=== PATIENT | female | born 1995 | race Caucasian/White ===

== ENCOUNTER 2022-10-22 11:40 | Emergency (ER) | payer SELFPAY ==
--- NOTE | ~2022-10-22 | US_ITS ---
Limited Abdominal Sonogram: Real-time sonographic imaging of the right upper quadrant was performed. Clinical History: Pain Findings: The liver appears normal with no evidence of mass lesion or bile duct dilatation. Main por moy vein demonstrates normal direction of flow. The gallbladder is contracted. Focal echogenicity cou ld reflect gallstone versus fat or air within the bowel. The common bile duct measures 5 mm. The vis ualized pancreas, aorta, and IVC are unremarkable. Impression: Contracted gallbladder limits evaluation. Questionable gallstone present. Reviewed, dictated and finalized at location M. Impression: Contracted gallbladder limits evaluation. Questionable gallstone present.
[2022-10-22 11:51] VITALS: BP 119/81; PULSE 99; RESP 16; TEMP 36.2; O2SAT 98
--- NOTE | 2022-10-22 12:20 | ED.GENADULT ---
HPI - General Adult General Chief complaint: Abdominal Pain Stated complaint: stomach pain; gallbladder Time Seen by Provider: 10/22/22 12:14 Source: patient Mode of arrival: ambulatory Limitations: no limitations History of Present Illness HPI narrative: Patient presents to the emergency room on her own secondary to worsening right upper quadrant pains. She has known gallbladder disease and recently moved and is requiring a new surgeon at this time. They are monitoring the gallbladder and not doing surgery right away. She is unable to hold food down at this time due to the pain and nausea. Onset (ago): day(s) (2) Location: back and abdomen Radiation: back and abdomen Severity: moderate Severity scale (1-10): 8 Quality: sharp Pain Consistency: intermittent and colicky Relieving factors: none Exacerbating factors: other (food) Associated symptoms: nausea/vomiting Treatments prior to arrival: none Related Data Home Medications Medication Instructions Recorded Confirmed escitalopram oxalate 5 mg tablet 5 mg PO DAILY 10/22/22 10/22/22 (Lexapro) Allergies Allergy/AdvReac Type Severity Reaction Status Date / Time No Known Allergies Allergy Verified 10/22/22 11:52 Review of Systems Review of Systems: All systems reviewed & are unremarkable except as noted in HPI and below Constitutional: Constitutional: Reports no additional constitutional complaints Cardiovascular: Cardiovascular: Reports no additional cardiovascular complaints Respiratory: Respiratory: Reports no additional respiratory complaints Gastrointestinal: Gastrointestinal: Reports as per HPI, Reports no additional gastrointestinal complaints, Reports abdominal pain, Reports diarrhea, Reports nausea and Reports vomiting Genitourinary: Genitourinary: Reports no additional female genitourinary complaints, Denies dysuria and Denies flank pain Musculoskeletal: Musculoskeletal: Reports no additional musculoskeletal complaints and Reports as per HPI Integumentary/Breasts: Skin/Breast: Reports system reviewed and no additional complaints, except as docu Neurologic: Reports system reviewed and no additional complaints, except as documented Exam Const: General: healthy appearing and no acute distress Chest: Chest palpation & inspection: normal inspection of the chest Resp: Effort & Inspection: normal respiratory effort Auscultation: clear to auscultation bilaterally Cardio: Rate: regular rate Rhythm: regular rhythm Heart sounds: no murmurs GI: Inspection: non-distended GI Palp: Yes Soft to palpation, Yes Tenderness to palpation present (GI), No Guarding due to palpation present (GI), No Rigid due to palpation, No Hernia present, No Palpable mass present and Yes Rebound tenderness present (Haile sign positive.) Auscultation: normal bowel sounds Back/Spine/Pelvis: Back: no CVA tenderness Skin: General skin exam: normal color Neuro: General: patient oriented x3 Extrem: General: normal to inspection and no clubbing, cyanosis or edema Psych: Mental Status: mental status grossly normal Course Vital Signs Vital signs: Vital Signs Temperature 36.2 C L 10/22/22 11:51 Pulse Rate 99 10/22/22 11:51 Respiratory Rate 16 10/22/22 11:51 Blood Pressure 119/81 10/22/22 11:51 Pulse Oximetry 98 10/22/22 11:51 Oxygen Delivery Room Air 10/22/22 11:51 Temperature 36.2 C L 10/22/22 11:51 Pulse Rate 99 10/22/22 11:51 Respiratory Rate 16 10/22/22 11:51 Blood Pressure 119/81 10/22/22 11:51 Pulse Oximetry 98 10/22/22 11:51 Oxygen Delivery Room Air 10/22/22 11:51 Medical Decision Making Vital Signs Vital Signs: Vital Signs Temperature 36.2 C L 10/22/22 11:51 Pulse Rate 99 10/22/22 11:51 Respiratory Rate 16 10/22/22 11:51 Blood Pressure 119/81 10/22/22 11:51 Pulse Oximetry 98 10/22/22 11:51 Oxygen Delivery Room Air 10/22/22 11:51 Temperature 36.2 C L 10/22/22 11:51 Pulse Ra
[2022-10-22 12:33] LABS: Pregnancy On Board Control Positive; Urine Pregnancy Test Negative
[2022-10-22 12:34] LABS: Appearance Urine Clear (Clear); Bilirubin Urine Negative (Negative); Blood Urine Negative (Negative); Color Urine Light Yellow (Yellow); Glucose Urine UA Negative (Negative); Ketones Urine Negative (Negative); Leukocyte Esterase Ur Negative (Negative); Nitrate Urine Negative (Negative); Protein Urine Negative (Negative); Urobilinogen Urine 0.2 mg/dL (0.2-1.0); pH Urine 6.5 (5.0-8.0)
[2022-10-22 12:35] LABS: Add Urine Microscopic? NO
[2022-10-22 12:59] LABS: Basophils Absolute Auto 0.04 K/mm3 (0.00-0.10); Basophils Percent Auto 0.7 % (0.0-1.0); Eosinophils Absolute Auto 0.05 K/mm3 (0.02-0.50); Eosinophils Percent Auto 0.9 % (1.0-6.0); Hemoglobin 13.1 g/dL (12.0-15.0); Immature Granulocyte Absolute 0.01 K/mm3 (0.00-0.00); Immature Granulocyte Percent A 0.2 % (0.0-0.0); Lymphocytes Absolute Auto 2.04 K/mm3 (1.10-4.50); Lymphocytes Percent Auto 36.7 % (18.0-42.0); Mean Corpuscular HGB Conc 33.6 g/dL (32.0-36.0); Mean Corpuscular Hemoglobin 30.5 pg (27.0-31.0); Mean Corpuscular Volume 90.7 fL (78.0-102.0); Mean Platelet Volume 10.2 fl (9.2-11.8); Monocytes Absolute Auto 0.44 K/mm3 (0.10-0.90); Monocytes Percent Auto 7.9 % (2.0-11.0); Neutrophils Percent Auto 53.6 % (50.0-70.0); Platelet Count Result 231 K/mm3 (150-420); Red Cell Distribution Width 12.3 % (11.6-14.4); White Blood Count 5.6 K/mm3 (4.8-10.8)
[2022-10-22 13:12] LABS: Alanine Aminotransferase 62 U/L (14-59); Albumin Level 4.1 g/dL (3.4-5.0); Alkaline Phosphatase 81 U/L (46-116); Anion Gap 10 mmol/L (8-16); Aspartate Amino Transferase 30 U/L (15-37); Bilirubin,Total 0.2 mg/dL (0.00-1.00); Blood Urea Nitrogen 9 mg/dL (7-18); Calcium 8.7 mg/dL (8.5-10.1); Carbon Dioxide 27 mmol/L (21-32); Chloride 106 mmol/L (98-108); Estimated CRCL calculation 80 ml/min; Estimated Glomerular Filt Rate > 60; Glucose 78 mg/dL (70-99); Lipase 38 U/L (16-77); Osmolality Calculated 293 mOsm/kg (285-295); Sodium 143 mmol/L (136-145); Total Protein 7.2 g/dL (6.4-8.2)
[2022-10-22 13:52] VITALS: BP 97/62; PULSE 81; RESP 20; TEMP 36.1; O2SAT 99
== END 2022-10-22 13:46 | disposition home or self-care (01) ==
PROVIDERS: Emergency Provider Emergency Medicine; PCP Physician Assistant
DX: K80.20 Calculus of gallbladder without cholecystitis without obstruction (principal)
CPT/HCPCS: 36415; 76705; 80053; 81003; 81025; 83690; 85025; 99284

== ENCOUNTER 2023-02-18 12:56 | Emergency (ER) | payer SELFPAY ==
--- NOTE | ~2023-02-18 | CT_ITS ---
EXAMINATION: CT abdomen pelvis wo con DATE: 02/18/2023 14:22 INDICATION: Left flank pain. TECHNIQUE: Computed tomography (CT) of the abdomen and pelvis was performed without intravenous contr ast. Automated exposure control and iterative reconstruction technique were employed. The dose-length product was 549.04 mGy-cm. COMPARISON: None. FINDINGS: The visualized portions of the lung bases are clear without pneumonia or pleural effusion. The heart size is normal. No pericardial effusion. The liver, gallbladder, spleen, pancreas, adrenal glands, and kidneys are normal. There are no dilated loops of bowel. The appendix is normal. There ar e no pathologically enlarged lymph nodes. There is no free intraperitoneal fluid. There is mild lumba r spondylosis. IMPRESSION: 1. No urolithiasis. Reviewed, dictated and finalized at location A. [facility] IMPRESSION: 1. No urolithiasis.
[2023-02-18 12:56] VITALS: BP 114/67; PULSE 80; RESP 16; TEMP 36.6; O2SAT 97
[2023-02-18 13:33] LABS: Basophils Absolute Auto 0.02 K/mm3 (0.00-0.10); Basophils Percent Auto 0.3 % (0.0-1.0); Eosinophils Absolute Auto 0.04 K/mm3 (0.02-0.50); Eosinophils Percent Auto 0.6 % (1.0-6.0); Hematocrit 38.8 % (35.0-49.0); Hemoglobin 12.8 g/dL (12.0-15.0); Immature Granulocyte Absolute 0.02 K/mm3 (0.00-0.00); Immature Granulocyte Percent A 0.3 % (0.0-0.0); Lymphocytes Absolute Auto 2.28 K/mm3 (1.10-4.50); Lymphocytes Percent Auto 34.8 % (18.0-42.0); Mean Corpuscular Hemoglobin 29.4 pg (27.0-31.0); Mean Corpuscular Volume 89.2 fL (78.0-102.0); Mean Platelet Volume 10.6 fl (9.2-11.8); Monocytes Absolute Auto 0.35 K/mm3 (0.10-0.90); Monocytes Percent Auto 5.3 % (2.0-11.0); Neutrophils Absolute Auto 3.9 K/mm3 (1.7-7.2); Neutrophils Percent Auto 58.7 % (50.0-70.0); Platelet Count Result 219 K/mm3 (150-420); Red Blood Count 4.35 M/mm3 (4.20-5.40); Red Cell Distribution Width 12.5 % (11.6-14.4); White Blood Count 6.6 K/mm3 (4.8-10.8)
[2023-02-18] MEDS: KETOROLAC 30 MG/ML VIAL (*BKC) IV PUSH (13:33)
[2023-02-18] MEDS: SODIUM CHLORIDE 0.9% IV 1,000 ML 999 ML IV CONT (13:43)
[2023-02-18 13:48] LABS: Alanine Aminotransferase 30 U/L (14-59); Albumin Level 4.1 g/dL (3.4-5.0); Alkaline Phosphatase 84 U/L (46-116); Anion Gap 7 mmol/L (8-16); Aspartate Amino Transferase 16 U/L (15-37); Bilirubin,Total 0.3 mg/dL (0.00-1.00); Blood Urea Nitrogen 12 mg/dL (7-18); Calcium 8.4 mg/dL (8.5-10.1); Carbon Dioxide 30 mmol/L (21-32); Chloride 104 mmol/L (98-108); Estimated CRCL calculation 73 ml/min; Estimated Glomerular Filt Rate > 60; Glucose 87 mg/dL (70-99); Osmolality Calculated 290 mOsm/kg (285-295); Potassium 3.6 mmol/L (3.5-5.1); Sodium 141 mmol/L (136-145)
[2023-02-18 14:10] LABS: SPREG INTERNAL CONTROL Positive; Serum Qual hCG Negative
[2023-02-18 14:46] LABS: Appearance Urine Clear (Clear); Bilirubin Urine Negative (Negative); Blood Urine 3+ (Negative); Color Urine Light Yellow (Yellow); Glucose Urine UA Negative (Negative); Ketones Urine Negative (Negative); Leukocyte Esterase Ur Negative LEU/UL (Negative); Nitrate Urine Negative (Negative); Protein Urine Negative (Negative); Urobilinogen Urine 0.2 mg/dL (0.2-1.0)
[2023-02-18 14:52] LABS: Add Urine Microscopic? YES; Squamous Epithelial Cell Urine Few /hpf (Few); WBC Urine 0-3 /hpf (0-3)
[2023-02-18 14:53] LABS: Bacteria Urine 1+ /hpf
[2023-02-18 14:56] VITALS: BP 111/75; PULSE 70; RESP 20; TEMP 37.1; O2SAT 97
--- NOTE | 2023-02-18 14:57 | ED.BACK ---
HPI - Back Pain/Injury General Chief Complaint: Urogenital-Female Stated Complaint: left flank pain; pain with urination Time Seen by Provider: 02/18/23 13:11 Mode of arrival: ambulatory Limitations: no limitations History of Present Illness HPI Narrative: this is 27-year-old female with no significant past history presents with left flank and lower back pain there is currently no fever chills no dysuria, the patient is currently on her menstrual. And has noticed blood in her urine otherwise no nausea vomiting or fever chills no diarrhea constipation no injuries to her lower back. MD elicited complaint: back pain Onset (ago): day(s) Severity: moderate Pain scale (0-10): 7 Quality: dull Related Data Home Medications Medication Instructions Recorded Confirmed escitalopram oxalate 5 mg tablet 5 mg PO DAILY 10/22/22 10/22/22 (Lexapro) Allergies Allergy/AdvReac Type Severity Reaction Status Date / Time No Known Allergies Allergy Verified 10/22/22 11:52 Review of Systems Review of Systems: All systems reviewed & are unremarkable except as noted in HPI and below PMFSH Past Medical History Medical History Patient denies medical problems Exam Const: General: healthy appearing Nutritional Appearance: well nourished Orientation/consciousness: patient oriented x3 Limitations: no limitations Neck: Neck: normal visual inspection Chest: Chest palpation & inspection: normal inspection of the chest Resp: Effort & Inspection: normal respiratory effort Auscultation: clear to auscultation bilaterally Cardio: Rate: regular rate Rhythm: regular rhythm GI: GI Palp: Yes Soft to palpation : General: Yes CVA tenderness Urinary Catheter: Urinary Catheter: patent and draining Back/Spine/Pelvis: Back: CVA tenderness Skin: General skin exam: normal color Rashes: no rashes Extrem: General: normal to inspection Psych: Mental Status: mental status grossly normal Affect: normal affect Course Course Emergency Course: patient received IV fluids, had a CT scan that was performed that showed no acute abnormalities, CBC and CMP were performed and reviewed with patient without any abnormalities, UA showed blood which is consistent with menstrual. Otherwise negative, patient was given IV Toradol and that improved her pain level. Vital Signs Vital signs: Vital Signs Temperature 36.6 C 02/18/23 12:56 Pulse Rate 80 02/18/23 12:56 Respiratory Rate 16 02/18/23 12:56 Blood Pressure 114/67 02/18/23 12:56 Pulse Oximetry 97 02/18/23 12:56 Oxygen Delivery Room Air 02/18/23 12:56 Temperature 36.6 C 02/18/23 12:56 Pulse Rate 80 02/18/23 12:56 Respiratory Rate 16 02/18/23 12:56 Blood Pressure 114/67 02/18/23 12:56 Pulse Oximetry 97 02/18/23 12:56 Oxygen Delivery Room Air 02/18/23 12:56 MDM - Back Pain/Injury Lab Data 02/18/23 13:30 02/18/23 13:30 Labs: Lab Results 02/18/23 02/18/23 Range/Units 13:30 14:43 WBC 6.6 (4.8-10.8) K/mm3 RBC 4.35 (4.20-5.40) M/mm3 Hgb 12.8 (12.0-15.0) g/dL Hct 38.8 (35.0-49.0) % MCV 89.2 (78.0-102.0) fL MCH 29.4 (27.0-31.0) pg MCHC 33.0 (32.0-36.0) g/dL RDW 12.5 (11.6-14.4) % Plt Count 219 (150-420) K/mm3 MPV 10.6 (9.2-11.8) fl Immature Gran % (Auto) 0.3 H (0.0-0.0) % Neut % (Auto) 58.7 (50.0-70.0) % Lymph % (Auto) 34.8 (18.0-42.0) % [place] % (Auto) 5.3 (2.0-11.0) % Eos % (Auto) 0.6 L (1.0-6.0) % Baso % (Auto) 0.3 (0.0-1.0) % Lymph # (Auto) 2.28 (1.10-4.50) K/mm3 [place] # (Auto) 0.35 (0.10-0.90) K/mm3 Eos # (Auto) 0.04 (0.02-0.50) K/mm3 Baso # (Auto) 0.02 (0.00-0.10) K/mm3 Abs Immat Gran (auto) 0.02 H (0.00-0.00) K/mm3 Absolute Neuts (auto) 3.9 (1.7-7.2) K/mm3 Absolute Nucleated RBC 0.00 (0.00-0.00) K/mm3 Nucleated RBC % 0.0 (0-0.0) % Sodium 141 (13
== END 2023-02-18 15:03 | disposition home or self-care (01) ==
PROVIDERS: Emergency Provider Emergency Medicine; PCP Physician Assistant
DX: N94.6 Dysmenorrhea, unspecified (principal)
CPT/HCPCS: 36415; 74176; 80053; 81001; 84703; 85025; 96361; 96374; 99284; J1885; J7030

== ENCOUNTER 2023-11-21 07:27 | Emergency (ER) | payer OTHER, SELFPAY ==
[2023-11-21 07:28] VITALS: BP 109/69; PULSE 71; RESP 18; TEMP 36.1; O2SAT 97
--- NOTE | 2023-11-21 07:38 | ED.DENTAL ---
HPI - Dental/Oral General Chief complaint: Dental/Oral Stated complaint: toothache Time Seen by Provider: 11/21/23 07:33 Source: patient Mode of arrival: ambulatory Limitations: no limitations History of Present Illness HPI Narrative: Left upper dental pain off and on for 2 years, scheduled to see dentist at the end of this. She denies any fever, chills, headache, difficulty swallowing or breathing. Related Data Home Medications Medication Instructions Recorded Confirmed escitalopram oxalate 5 mg tablet 5 mg PO DAILY 10/22/22 11/21/23 (Lexapro) Allergies Allergy/AdvReac Type Severity Reaction Status Date / Time amoxicillin Allergy Anaphylaxis Verified 11/21/23 07:31 Penicillins Allergy Anaphylaxis Verified 11/21/23 07:31 Review of Systems Review of Systems: All systems reviewed & are unremarkable except as noted in HPI and below PMFSH Past Medical History Medical History Patient denies medical problems Exam Narrative: General appearance: Well-developed, well-nourished Skin: Normal color Head: Normocephalic, nontraumatic Eyes: Clear conjunctiva ENT: Oropharynx normal, ears normal, nose normal . Dental decay left upper teeth and impacted wisdom teeth bilaterally Neck: Supple, nontender Neurologic: Alert and oriented ?3, PROFESSIONAL NURSE is normal as tested, no gross motor deficit Course Vital Signs Vital signs: Vital Signs Temperature 36.1 C L 11/21/23 07:28 Pulse Rate 71 11/21/23 07:28 Respiratory Rate 18 11/21/23 07:28 Blood Pressure 109/69 11/21/23 07:28 Pulse Oximetry 97 11/21/23 07:28 Oxygen Delivery Room Air 11/21/23 07:28 Temperature 36.1 C L 11/21/23 07:28 Pulse Rate 71 11/21/23 07:28 Respiratory Rate 18 11/21/23 07:28 Blood Pressure 109/69 11/21/23 07:28 Pulse Oximetry 97 11/21/23 07:28 Oxygen Delivery Room Air 11/21/23 07:28 Critical Care Time Critical Care Time Critical Care Time: No Discharge Plan Discharge Clinical Impression: Dental caries Patient Disposition: Home, Self-Care Condition: Stable Instructions: Antibiotic Form, Toothache (ED) Additional Instructions: call dentist for early appointement Prescriptions: New clindamycin HCl [Cleocin HCl] 300 mg capsule 300 mg PO Q6H Qty: 40 0RF ibuprofen [IBU] 800 mg tablet 800 mg PO TID Qty: 20 0RF No Action escitalopram oxalate [Lexapro] 5 mg Tablet 5 mg PO DAILY hydrocodone-acetaminophen 5-325 mg tablet 1 tablet PO Q8H PRN (Reason: pain) Qty: 20 0RF Rx Instructions: 1-2 tabs per dose ondansetron 4 mg tablet,disintegrating 4 mg PO Q6H PRN (Reason: nausea and vomiting) Qty: 20 0RF tramadol 50 mg tablet 50 mg PO Q6H PRN (Reason: pain) Qty: 14 0RF Follow-up/Referrals: Traci,LEON Bernal [Primary Care Provider] - Stand Alone Forms: Work/School Release IP
[2023-11-21 07:52] VITALS: BP 109/69; PULSE 71; RESP 18; TEMP 36.1; O2SAT 97
== END 2023-11-21 07:52 | disposition home or self-care (01) ==
PROVIDERS: Emergency Provider Emergency Medicine; PCP Physician Assistant
DX: K02.9 Dental caries, unspecified (principal)
CPT/HCPCS: 99283